=== PATIENT | male | born 1975 | race Caucasian/White ===

== ENCOUNTER → 2019-09-16 | Outpatient (CLI) | payer BC | LOC: COL.RAD 07:10 | DX: M47.27 Other spondylosis with radiculopathy, lumbosacral region (principal); M48.061 Spinal stenosis, lumbar region without neurogenic claudication; M51.16 Intervertebral disc disorders with radiculopathy, lumbar region ==

== ENCOUNTER 2019-12-16 10:30 | Outpatient (RCR) | payer BC | END 2019-12-21 | disposition home or self-care (01) | LOC: WSPT | DX: M54.16 Radiculopathy, lumbar region (principal) ==

== ENCOUNTER 2020-02-16 07:15 | Outpatient (RCR) | payer BC | END 2020-02-17 08:25 | disposition home or self-care (01) | LOC: WSPT 07:15 | DX: M54.16 Radiculopathy, lumbar region (principal) ==

== ENCOUNTER 2020-12-23 15:32 | Emergency (ER) | payer BC ==
[~2020-12-23] VITALS: Ht 195.6 cm; Wt 113.6 kg
[2020-12-23 16:48] VITALS: BP 138/80; TEMP 98.8
[2020-12-23] MEDS ORDERED: ZOCOR 10MG10 MG PO (16:54)
[2020-12-23] MEDS ORDERED: PRINIVIL10 MG PO (16:55)
[2020-12-23] MEDS ORDERED: ZOCOR 20MG20 MG PO (16:55)
[2020-12-23] MEDS ORDERED: NORCO 325 MG-51 TAB PO (17:20)
[2020-12-23] MEDS ORDERED: MEDROL 4MG DOSPA4 MG PO (17:20)
[2020-12-23] MEDS ORDERED: VALIUM 5MG T5 MG/TAB PO ×2 (17:20)
[2020-12-23] MEDS ORDERED: VALIUM 10MG10 MG/TAB PO (18:56)
[2020-12-23 19:03] VITALS: PULSE 85
== END 2020-12-23 19:03 | disposition home or self-care (01) ==
LOC: COL.ER 15:32
DX: M54.16 Radiculopathy, lumbar region (principal); I10 Essential (primary) hypertension; E78.5 Hyperlipidemia, unspecified; Z79.899 Other long term (current) drug therapy
CPT/HCPCS: J1100